=== PATIENT | male | born 1990 | race Caucasian/White ===

== ENCOUNTER 2017-05-01 17:21 | Inpatient (IN) | payer BC, OTHER ==
[~2017-05-01] VITALS: Ht 180.3 cm; Wt 68.0 kg
[2017-05-01] MEDS ORDERED: diphenhydrAMINE 50 MG CAPSULE PO PRN (20:45)
[2017-05-01] MEDS ORDERED: METHOCARBAMOL 750 MG TABLET PO PRN (20:45)
[2017-05-01] MEDS ORDERED: BUPRENORPHINE HCL 2 MG TAB.SUBL SL PRN (20:45)
[2017-05-01] MEDS ORDERED: DIAZEPAM 5 MG TABLET PO PRN (20:45)
[2017-05-01] MEDS ORDERED: CLONIDINE HCL 0.1 MG TABLET PO PRN (20:45)
[2017-05-01] MEDS ORDERED: LOPERAMIDE HCL 2 MG CAPSULE PO PRN ×2 (20:45)
[2017-05-01] MEDS ORDERED: LORAZEPAM 2 MG/1 ML VIAL IM PRN (20:45)
[2017-05-01] MEDS ORDERED: ONDANSETRON 4 MG/2 ML VIAL IM PRN (20:45)
[2017-05-01] MEDS ORDERED: DIAZEPAM 10 MG TABLET PO PRN ×2 (20:45)
[2017-05-01] MEDS ORDERED: DICYCLOMINE HCL 20 MG TABLET PO PRN (20:45)
[2017-05-01] MEDS ORDERED: MAGNESIUM HYDROXIDE 30 ML LIQUID UDC PO PRN (20:45)
[2017-05-01] MEDS ORDERED: MIRALAX 17 GM POWD.PACK PO PRN (20:45)
[2017-05-01] MEDS ORDERED: MAG HYDROX/AL HYDROX/SIMETH 30 ML LIQUID UDC PO PRN (20:45)
[2017-05-01] MEDS: GABAPENTIN 300 MG CAPSULE PO SCH (21:00)
[2017-05-01 21:16] LABS: *AMPHETAMINE, URINE POSITIVE (NEGATIVE); *BARBITURATE, URINE NEGATIVE (NEGATIVE); *CANNABINOID, URINE NEGATIVE (NEGATIVE); *COCCAINE, URINE NEGATIVE (NEGATIVE); *OPIATE, URINE NEGATIVE (NEGATIVE); *PHENCYCLIDINE SCREEN,URINE NEGATIVE (NEGATIVE)
[2017-05-01 21:18] VITALS: BP 124/67
[2017-05-01] MEDS ORDERED: DIAZEPAM 10 MG TABLET PO SCH (22:00)
[2017-05-02 00:24] VITALS: BP 122/71
[2017-05-02 04:18] VITALS: BP 126/74
[2017-05-02 08:00] VITALS: BP 103/58
[2017-05-02] MEDS: GABAPENTIN 300 MG CAPSULE PO SCH ×2 (08:59→21:18)
[2017-05-02] MEDS: BUPRENORPHINE HCL 2 MG TAB.SUBL SL SCH ×4 (09:00→21:18)
[2017-05-02] MEDS ORDERED: PNEUMOCOCCAL 23-VAL P-SAC VAC 0.5 ML VIAL IM ONE (09:00)
[2017-05-02] MEDS ORDERED: TUBERCULIN,PURIF.PROT.DERIV. 5 TU/0.1 ML TEST ID ONE (09:00)
[2017-05-02] MEDS: DIAZEPAM 10 MG TABLET PO SCH ×4 (09:00→21:18)
[2017-05-02 12:00] VITALS: BP 124/74
[2017-05-02 12:03] LABS: BASOPHILS % (AUTO) 0.5 % (0.0-2.0); EOSINOPHILS # (AUTO) 0.1 K/uL (0.0-0.7); HEMOGLOBIN 15.4 g/dL (12.5-16.3); LYMPHOCYTES # (AUTO) 1.7 K/uL (20.0-40.0); LYMPHOCYTES % (AUTO) 27.8 % (20.5-51.5); MEAN CORPUSCULAR HEMOGLOBIN 29.2 uug (23.8-33.4); MEAN CORPUSCULAR HGB CONC 33 g/dL (32.5-36.3); MEAN CORPUSCULAR VOLUME 88.7 fL (73.0-96.2); MONOCYTES # (AUTO) 0.6 K/uL (2.0-10.0); MONOCYTES % (AUTO) 10.4 % (0.0-11.0); NEUTROPHILS # (AUTO) 3.6 K/uL (1.8-8.9); NEUTROPHILS % (AUTO) 59.3 % (38.5-71.5); PLATELET COUNT (AUTO) 211 K/uL (152-348); RED BLOOD CELL COUNT(AUTO) 5.29 MIL/uL (4.06-5.63)
[2017-05-02 12:52] LABS: ETHANOL < 3 MG/DL (0-0)
[2017-05-02 12:56] LABS: ALANINE AMINOTRANSFERASE 32 U/L (16-63); ASPARTATE AMINOTRANSFERASE 20 U/L (15-37); CARBON DIOXIDE 32 mmol/L (21-32); CHLORIDE 102 mmol/L (98-107); CREATININE 0.9 mg/dL (0.6-1.3); GLUCOSE 106 mg/dL (74-106); MAGNESIUM 2.1 mg/dL (1.8-2.4); POTASSIUM 4.5 mmol/L (3.5-5.1); UREA NITROGEN, BLOOD 10 mg/dL (7-18)
[2017-05-02 13:10] LABS: ALKALINE PHOSPHATASE 79 U/L (50-136); BILIRUBIN,TOTAL 0.2 mg/dL (0.2-1.0); TOTAL PROTEIN, SERUM 6.8 g/dL (6.4-8.2)
[2017-05-02 13:41] LABS: THYROID STIMULATING HORMONE 0.843 mIU/mL (0.358-3.740)
[2017-05-02 16:00] VITALS: BP 124/80
[2017-05-02 20:27] VITALS: BP 108/58
[2017-05-02] MEDS ORDERED: DICYCLOMINE HCL 20 MG TABLET PO SCH (21:00)
[2017-05-02] MEDS: DIVALPROEX ER 500 MG TAB.SR.24H PO SCH (21:18)
[2017-05-02] MEDS: AMITRIPTYLINE HCL 50 MG TABLET PO SCH (21:18)
[2017-05-02] MEDS: IBUPROFEN 600 MG TABLET PO PRN (21:36)
[2017-05-03 00:15] VITALS: BP 110/64
[2017-05-03 04:44] VITALS: BP 115/68
[2017-05-03 08:00] VITALS: BP 108/67
[2017-05-03] MEDS: GABAPENTIN 300 MG CAPSULE PO SCH ×3 (08:57→20:57)
[2017-05-03] MEDS: DULOXETINE 30 MG CAPSULE.DR PO SCH (08:57)
[2017-05-03] MEDS: BUPRENORPHINE HCL 2 MG TAB.SUBL SL SCH ×3 (08:57→20:58)
[2017-05-03] MEDS: DIAZEPAM 10 MG TABLET PO SCH ×3 (08:57→20:57)
[2017-05-03] MEDS ORDERED: HYDROXYZINE PAMOATE 25 MG CAPSULE PO PRN (09:00)
[2017-05-03] MEDS: ONDANSETRON ODT 4 MG TAB.RAPDIS SL PRN ×2 (09:03→20:58)
[2017-05-03] MEDS: ACETAMINOPHEN 325 MG TABLET PO PRN ×2 (09:03→20:47)
[2017-05-03 12:00] VITALS: BP 112/79
[2017-05-03] MEDS: IBUPROFEN 600 MG TABLET PO PRN (12:46)
[2017-05-03 13:07] LABS: HEPATITIS B SURFACE AG Negative (Negative)
[2017-05-03] MEDS: BENZOCAINE ORAL CARE 12 ML BOTTLE MM PRN ×2 (14:16→21:18)
[2017-05-03] MEDS: BACLOFEN 10 MG TABLET PO SCH ×2 (14:51→20:57)
[2017-05-03 16:00] VITALS: BP 130/71
[2017-05-03 20:00] VITALS: BP 120/76
[2017-05-03] MEDS: DIVALPROEX ER 500 MG TAB.SR.24H PO SCH (20:57)
[2017-05-03] MEDS: AMITRIPTYLINE HCL 50 MG TABLET PO SCH (20:57)
[2017-05-04] VITALS: BP 131/91
[2017-05-04] MEDS: KETOROLAC TROMETHAMINE 30 MG INJ IM PRN ×2 (01:36→08:57)
[2017-05-04 08:00] VITALS: BP 129/92
[2017-05-04] MEDS: GABAPENTIN 300 MG CAPSULE PO SCH ×2 (08:56→14:03)
[2017-05-04] MEDS: BUPRENORPHINE HCL 2 MG TAB.SUBL SL SCH ×2 (08:56→21:00)
[2017-05-04] MEDS: DIAZEPAM 5 MG TABLET PO SCH ×3 (08:56→16:07)
[2017-05-04] MEDS: DULOXETINE 30 MG CAPSULE.DR PO SCH (08:56)
[2017-05-04] MEDS: BACLOFEN 10 MG TABLET PO SCH ×2 (08:56→14:03)
[2017-05-04] MEDS: BENZOCAINE ORAL CARE 12 ML BOTTLE MM PRN (08:57)
[2017-05-04 12:00] VITALS: BP 117/76
[2017-05-04 16:00] VITALS: BP 128/86
[2017-05-04 20:15] VITALS: BP 122/73
[2017-05-04] MEDS: CLONIDINE HCL 0.1 MG TABLET PO SCH (21:00)
[2017-05-04] MEDS ORDERED: DIAZEPAM 10 MG TABLET PO SCH (21:00)
[2017-05-04] MEDS: DIVALPROEX ER 500 MG TAB.SR.24H PO SCH (21:00)
[2017-05-04] MEDS ORDERED: GABAPENTIN 300 MG CAPSULE PO SCH (21:00)
[2017-05-04] MEDS: AMITRIPTYLINE HCL 50 MG TABLET PO SCH (21:00)
[2017-05-04] MEDS: BACLOFEN 20 MG TABLET PO SCH (21:00)
[2017-05-05 00:40] VITALS: BP 117/68
[2017-05-05 04:04] VITALS: BP 122/74
[2017-05-05 08:00] VITALS: BP 124/71
[2017-05-05] MEDS ORDERED: BUPRENORPHINE HCL 2 MG TAB.SUBL SL SCH (09:00)
[2017-05-05] MEDS ORDERED: GABAPENTIN 300 MG CAPSULE PO SCH (09:00)
[2017-05-05] MEDS: DIAZEPAM 5 MG TABLET PO SCH ×3 (09:37→20:37)
[2017-05-05] MEDS: DULOXETINE 30 MG CAPSULE.DR PO SCH (09:37)
[2017-05-05] MEDS: BACLOFEN 20 MG TABLET PO SCH ×3 (09:38→20:37)
[2017-05-05] MEDS: CLONIDINE HCL 0.1 MG TABLET PO SCH ×3 (09:38→20:37)
[2017-05-05 12:00] VITALS: BP 123/61
[2017-05-05] MEDS: IBUPROFEN 600 MG TABLET PO PRN ×2 (14:14→20:36)
[2017-05-05] MEDS: GABAPENTIN 300 MG CAPSULE PO SCH ×2 (14:14→20:37)
[2017-05-05] MEDS: DICYCLOMINE HCL 20 MG TABLET PO SCH ×2 (14:15→20:37)
[2017-05-05 16:00] VITALS: BP 109/67
[2017-05-05] MEDS: BUPRENORPHINE HCL 2 MG TAB.SUBL SL SCH ×2 (17:36→20:37)
[2017-05-05 20:19] VITALS: BP 120/70
[2017-05-05] MEDS: DIVALPROEX ER 500 MG TAB.SR.24H PO SCH (20:36)
[2017-05-05] MEDS: AMITRIPTYLINE HCL 50 MG TABLET PO SCH (20:36)
[2017-05-06 00:50] VITALS: BP 124/75
[2017-05-06 04:39] VITALS: BP 128/74
[2017-05-06 08:00] VITALS: BP 109/74
[2017-05-06] MEDS ORDERED: BUPRENORPHINE HCL 2 MG TAB.SUBL SL SCH ×2 (09:00)
[2017-05-06] MEDS: GABAPENTIN 300 MG CAPSULE PO SCH (09:50)
[2017-05-06] MEDS: BACLOFEN 20 MG TABLET PO SCH ×3 (09:50→20:26)
[2017-05-06] MEDS: DULOXETINE 30 MG CAPSULE.DR PO SCH (09:50)
[2017-05-06] MEDS: DICYCLOMINE HCL 20 MG TABLET PO SCH ×3 (09:50→20:26)
[2017-05-06] MEDS: DIAZEPAM 5 MG TABLET PO SCH ×2 (09:50→20:27)
[2017-05-06] MEDS: CLONIDINE HCL 0.1 MG TABLET PO SCH ×3 (09:51→20:27)
[2017-05-06 12:00] VITALS: BP 105/71
[2017-05-06] MEDS: BUPRENORPHINE HCL 2 MG TAB.SUBL SL SCH ×2 (15:29→20:27)
[2017-05-06] MEDS: GABAPENTIN 400 MG CAPSULE PO SCH ×2 (15:29→20:27)
[2017-05-06 16:00] VITALS: BP 105/72
[2017-05-06 20:15] VITALS: BP 122/71
[2017-05-06] MEDS: AMITRIPTYLINE HCL 50 MG TABLET PO SCH (20:26)
[2017-05-06] MEDS: DIVALPROEX ER 500 MG TAB.SR.24H PO SCH (20:27)
[2017-05-07 00:19] VITALS: BP 125/78
[2017-05-07 04:06] VITALS: BP 117/73
[2017-05-07 08:00] VITALS: BP 102/61
[2017-05-07] MEDS: BACLOFEN 20 MG TABLET PO SCH ×3 (08:18→21:31)
[2017-05-07] MEDS: GABAPENTIN 400 MG CAPSULE PO SCH (08:18)
[2017-05-07] MEDS: DULOXETINE 30 MG CAPSULE.DR PO SCH (08:19)
[2017-05-07] MEDS: DICYCLOMINE HCL 20 MG TABLET PO SCH ×3 (08:19→21:31)
[2017-05-07] MEDS: CLONIDINE HCL 0.1 MG TABLET PO SCH ×3 (08:19→21:32)
[2017-05-07] MEDS ORDERED: BUPRENORPHINE HCL 2 MG TAB.SUBL SL SCH (09:00)
[2017-05-07] MEDS ORDERED: DIAZEPAM 5 MG TABLET PO SCH (09:00)
[2017-05-07 12:00] VITALS: BP 120/51
[2017-05-07] MEDS: GABAPENTIN 300 MG CAPSULE PO SCH ×2 (14:15→21:31)
[2017-05-07] MEDS: IBUPROFEN 600 MG TABLET PO PRN (14:18)
[2017-05-07 16:00] VITALS: BP 119/66
[2017-05-07] MEDS: BENZOCAINE ORAL CARE 12 ML BOTTLE MM PRN (16:30)
[2017-05-07] MEDS ORDERED: IBUP-1955 PO (17:27)
[2017-05-07] MEDS ORDERED: CLON0.1T14 PO (17:27)
[2017-05-07] MEDS ORDERED: DIVA500T4 PO (17:27)
[2017-05-07] MEDS ORDERED: DICY20TA28 PO (17:27)
[2017-05-07] MEDS ORDERED: AMIT50TA17 PO (17:27)
[2017-05-07] MEDS ORDERED: HYDR-3895 PO (17:27)
[2017-05-07] MEDS ORDERED: BACL20TA PO (17:27)
[2017-05-07] MEDS ORDERED: GABA-534 PO (17:27)
[2017-05-07] MEDS ORDERED: DULO30CA2 PO (17:27)
[2017-05-07 20:00] VITALS: BP 134/82
[2017-05-07] MEDS: AMITRIPTYLINE HCL 50 MG TABLET PO SCH (21:32)
[2017-05-07] MEDS: DIVALPROEX ER 500 MG TAB.SR.24H PO SCH (21:32)
[2017-05-07] MEDS: ACETAMINOPHEN 325 MG TABLET PO PRN (21:51)
[2017-05-08 08:18] VITALS: BP 104/60
[2017-05-08 08:25] VITALS: BP 104/60
[2017-05-08] MEDS: CLONIDINE HCL 0.1 MG TABLET PO SCH (08:25)
[2017-05-08] MEDS: GABAPENTIN 300 MG CAPSULE PO SCH (08:31)
[2017-05-08] MEDS: BACLOFEN 20 MG TABLET PO SCH (08:31)
[2017-05-08] MEDS: DULOXETINE 30 MG CAPSULE.DR PO SCH (08:31)
[2017-05-08] MEDS: DICYCLOMINE HCL 20 MG TABLET PO SCH (08:31)
[2017-05-08] MEDS: ACETAMINOPHEN 325 MG TABLET PO PRN (08:31)
== END 2017-05-08 09:35 | disposition other institution (70) | DRG 895 ==
LOC: SRC 19:49
PROVIDERS: ADMIT Internal Medicine; ATTEND Internal Medicine
PROC: HZ2ZZZZ Detoxification Services for Substance Abuse Treatment (ICD-10-PCS; principal; 2017-05-01)
PROC: HZ31ZZZ Individual Counseling for Substance Abuse Treatment, Behavioral (ICD-10-PCS; 2017-05-04)
PROC: HZ41ZZZ Group Counseling for Substance Abuse Treatment, Behavioral (ICD-10-PCS; 2017-05-06)
DX: F13.230 Sedative, hypnotic or anxiolytic dependence with withdrawal, uncomplicated (principal); G62.9 Polyneuropathy, unspecified; F31.9 Bipolar disorder, unspecified; F17.210 Nicotine dependence, cigarettes, uncomplicated; F41.9 Anxiety disorder, unspecified; Z59.1 Inadequate housing; Z59.0 Homelessness; Z91.89 Other specified personal risk factors, not elsewhere classified; Z82.49 Family history of ischemic heart disease and other diseases of the circulatory system; Z81.8 Family history of other mental and behavioral disorders; F15.23 Other stimulant dependence with withdrawal; K08.89 Other specified disorders of teeth and supporting structures; B18.2 Chronic viral hepatitis C; F11.23 Opioid dependence with withdrawal
CPT/HCPCS: 36415; 70030-TC; 80307; 80324; 80346; 83735; 84443; 85025; 86580; 86592; 86705; 86803; 87340; 87806; 90732; 93005; A4663; A9150; G0480; J1885; Q0162